=== PATIENT | female | born 1955 | race Caucasian/White ===

== ENCOUNTER → 2016-05-10 | Outpatient (CLI) | payer MEDICARE, OTHER ==
[~2016-05-10] MED LIST: BENI20TA25 PO; LEVO88TA21 PO
[2016-05-10 12:12] LABS: AUTOMATED NEUTROPHIL # 3.5 TH/MM3 (1.8-7.7); BASOPHIL % 0.7 % (0.0-2.0); EOSINOPHIL # 0.3 TH/MM3 (0-0.4); EOSINOPHIL % 5.2 % (0.0-4.0); HEMATOCRIT 41.2 % (35.0-46.0); HEMO FLAGS DIFF FINAL; LYMPH % 33.8 % (9.0-44.0); LYMPHOCYTE # 2.3 TH/MM3 (1.0-4.8); MEAN CELL VOLUME 83.6 FL (80.0-100.0); MEAN CORPUSCULAR HEMOGLOBIN 27.7 PG (27.0-34.0); MEAN CORPUSCULAR HGB CONC 33.1 % (32.0-36.0); MONO % 8.1 % (0.0-8.0); NEUT % 52.2 % (16.0-70.0); PLATELET COUNT 183 TH/MM3 (150-450); RED BLOOD COUNT 4.92 MIL/MM3 (4.00-5.30); RED CELL DISTRIBUTION WIDTH 14.2 % (11.6-17.2); WHITE BLOOD COUNT 6.8 TH/MM3 (4.0-11.0)
[2016-05-10 12:47] LABS: ALKALINE PHOSPHATASE 98 U/L (45-117); ALT (GPT) 30 U/L (10-53); ANION GAP 7 MEQ/L (5-15); AST (GOT) 19 U/L (15-37); BICARBONATE 30.9 MEQ/L (21.0-32.0); BLOOD UREA NITROGEN 14 MG/DL (7-18); CHLORIDE 103 MEQ/L (98-107); FREE T3 4.47 PG/ML (2.18-3.98); FREE T4 1.15 NG/DL (0.76-1.46); GLOMERULAR FILTRATION RATE 105 ML/MIN (>89); GLUCOSE,FASTING 72 MG/DL (74-99); HDL CHOLESTEROL 35.5 MG/DL (40.0-60.0); LDL CHOLESTEROL 88 MG/DL (0-99); POTASSIUM 3.6 MEQ/L (3.5-5.1); SODIUM (NA) 141 MEQ/L (136-145); TOTAL BILIRUBIN ADULT 0.4 MG/DL (0.2-1.0)
== END ==
LOC: ELAB 08:16
PROVIDERS: ATTEND Family Medicine
DX: I10 Essential (primary) hypertension (principal); E78.2 Mixed hyperlipidemia; E03.8 Other specified hypothyroidism; E55.9 Vitamin D deficiency, unspecified; Z79.899 Other long term (current) drug therapy
CPT/HCPCS: 36415; 80053; 80061; 82306; 84439; 84443; 84481; 85025

== ENCOUNTER → 2016-08-08 | Outpatient (CLI) | payer MEDICARE, OTHER ==
[2016-08-08 09:14] LABS: FREE T3 5.05 PG/ML (2.18-3.98); FREE T4 1.18 NG/DL (0.76-1.46)
== END ==
LOC: ELAB 07:17
PROVIDERS: ATTEND Family Medicine
DX: E03.8 Other specified hypothyroidism (principal)
CPT/HCPCS: 36415; 84439; 84443; 84481

== ENCOUNTER → 2016-09-06 | Outpatient (CLI) | payer MEDICARE, OTHER ==
[2016-09-06 10:03] LABS: FREE T3 3.51 PG/ML (2.18-3.98); FREE T4 1.13 NG/DL (0.76-1.46)
== END ==
LOC: ELAB 07:03
PROVIDERS: ATTEND Family Medicine
DX: E03.8 Other specified hypothyroidism (principal); Z79.899 Other long term (current) drug therapy
CPT/HCPCS: 36415; 84439; 84443; 84481

== ENCOUNTER → 2016-11-29 | Outpatient (CLI) | payer MEDICARE, OTHER ==
[2016-11-29 09:08] LABS: AUTOMATED NEUTROPHIL # 4.1 TH/MM3 (1.8-7.7); BASOPHIL # 0.1 TH/MM3 (0-0.2); BASOPHIL % 0.8 % (0.0-2.0); EOSINOPHIL # 0.3 TH/MM3 (0-0.4); EOSINOPHIL % 3.6 % (0.0-4.0); HEMATOCRIT 42.5 % (35.0-46.0); HEMO FLAGS DIFF FINAL; LYMPH % 30.3 % (9.0-44.0); LYMPHOCYTE # 2.2 TH/MM3 (1.0-4.8); MEAN CELL VOLUME 84.9 FL (80.0-100.0); MEAN CORPUSCULAR HEMOGLOBIN 29.1 PG (27.0-34.0); MEAN CORPUSCULAR HGB CONC 34.3 % (32.0-36.0); MONO % 8.7 % (0.0-8.0); NEUT % 56.6 % (16.0-70.0); PLATELET COUNT 172 TH/MM3 (150-450); RED CELL DISTRIBUTION WIDTH 14.8 % (11.6-17.2); WHITE BLOOD COUNT 7.2 TH/MM3 (4.0-11.0)
[2016-11-29 10:16] LABS: ANION GAP 8 MEQ/L (5-15); AST (GOT) 18 U/L (15-37); BICARBONATE 27.7 MEQ/L (21.0-32.0); BLOOD UREA NITROGEN 14 MG/DL (7-18); CHLORIDE 105 MEQ/L (98-107); GLOMERULAR FILTRATION RATE 112 ML/MIN (>89); GLUCOSE,FASTING 98 MG/DL (74-99); POTASSIUM 3.8 MEQ/L (3.5-5.1); SODIUM (NA) 141 MEQ/L (136-145)
[2016-11-29 10:26] LABS: ALKALINE PHOSPHATASE 86 U/L (45-117); ALT (GPT) 23 U/L (10-53); FREE T3 4.08 PG/ML (2.18-3.98); FREE T4 1.08 NG/DL (0.76-1.46); HDL CHOLESTEROL 40.9 MG/DL (40.0-60.0); LDL CHOLESTEROL 104 MG/DL (0-99); TOTAL BILIRUBIN ADULT 0.5 MG/DL (0.2-1.0)
== END ==
LOC: ELAB 07:05
PROVIDERS: ATTEND Family Medicine
DX: I10 Essential (primary) hypertension (principal); E55.9 Vitamin D deficiency, unspecified; E78.2 Mixed hyperlipidemia; E03.8 Other specified hypothyroidism
CPT/HCPCS: 36415; 80053; 80061; 82306; 84439; 84443; 84481; 85025

== ENCOUNTER → 2016-11-30 | Outpatient (CLI) | payer MEDICARE, OTHER ==
[2016-11-30 12:45] LABS: HEMOGLOBIN A1b 1.7 %; HEMOGLOBIN Ao 85.1 %; HEMOGLOBIN LA1C 2.1 %; HEMOGLOBIN P3 3.9 %
== END ==
LOC: ELAB 07:02
PROVIDERS: ATTEND Family Medicine
DX: E78.2 Mixed hyperlipidemia (principal); I10 Essential (primary) hypertension; E03.8 Other specified hypothyroidism; E55.9 Vitamin D deficiency, unspecified; E10.8 Type 1 diabetes mellitus with unspecified complications; Z79.899 Other long term (current) drug therapy
CPT/HCPCS: 36415; 83036

== ENCOUNTER → 2017-01-19 | Outpatient (CLI) | payer MEDICARE, OTHER ==
[2017-01-19 09:35] LABS: FREE T3 3.46 PG/ML (2.18-3.98); FREE T4 0.78 NG/DL (0.76-1.46)
== END ==
LOC: ELAB 07:56
PROVIDERS: ATTEND Family Medicine
DX: E03.8 Other specified hypothyroidism (principal); Z79.899 Other long term (current) drug therapy
CPT/HCPCS: 36415; 84439; 84443; 84481

== ENCOUNTER → 2017-03-02 | Outpatient (CLI) | payer MEDICARE, OTHER ==
[2017-03-02 10:46] LABS: FREE T3 3.19 PG/ML (2.18-3.98); FREE T4 0.74 NG/DL (0.76-1.46)
== END ==
LOC: ELAB 07:08
PROVIDERS: ATTEND Family Medicine
DX: E03.9 Hypothyroidism, unspecified (principal)
CPT/HCPCS: 36415; 84439; 84443; 84481

== ENCOUNTER → 2017-04-27 | Outpatient (CLI) | payer MEDICARE, OTHER ==
[2017-04-27 09:01] LABS: AUTOMATED NEUTROPHIL # 3.6 TH/MM3 (1.8-7.7); BASOPHIL # 0.1 TH/MM3 (0-0.2); BASOPHIL % 0.8 % (0.0-2.0); EOSINOPHIL # 0.3 TH/MM3 (0-0.4); EOSINOPHIL % 4.5 % (0.0-4.0); HEMATOCRIT 45.7 % (35.0-46.0); HEMOGLOBIN 15.7 GM/DL (11.6-15.3); LYMPHOCYTE # 2.3 TH/MM3 (1.0-4.8); MEAN CELL VOLUME 86.2 FL (80.0-100.0); MEAN CORPUSCULAR HEMOGLOBIN 29.6 PG (27.0-34.0); MEAN CORPUSCULAR HGB CONC 34.3 % (32.0-36.0); MEAN PLATELET VOLUME 10.6 FL (7.0-11.0); MONO % 9.7 % (0.0-8.0); MONOCYTE # 0.7 TH/MM3 (0-0.9); PLATELET COUNT 193 TH/MM3 (150-450); RED BLOOD COUNT 5.31 MIL/MM3 (4.00-5.30); RED CELL DISTRIBUTION WIDTH 14.6 % (11.6-17.2); WHITE BLOOD COUNT 6.9 TH/MM3 (4.0-11.0)
[2017-04-27 10:44] LABS: ALBUMIN 3.3 GM/DL (3.4-5.0); AST (GOT) 24 U/L (15-37); BICARBONATE 29.1 MEQ/L (21.0-32.0); BLOOD UREA NITROGEN 19 MG/DL (7-18); CHLORIDE 103 MEQ/L (98-107); CREATININE 0.67 MG/DL (0.50-1.00); GLOMERULAR FILTRATION RATE 89 ML/MIN (>89); GLUCOSE,FASTING 85 MG/DL (74-99); SODIUM (NA) 139 MEQ/L (136-145)
[2017-04-27 10:45] LABS: ALT (GPT) 27 U/L (10-53); CHOLESTEROL 232 MG/DL (120-200)
[2017-04-27 10:54] LABS: ALKALINE PHOSPHATASE 105 U/L (45-117); CHOLESTEROL/ HDL RATIO 4.76 RATIO; FREE T3 3.23 PG/ML (2.18-3.98); FREE T4 0.66 NG/DL (0.76-1.46); HDL CHOLESTEROL 48.7 MG/DL (40.0-60.0); LDL CHOLESTEROL 134 MG/DL (0-99); TOTAL BILIRUBIN ADULT 0.5 MG/DL (0.2-1.0); TOTAL PROTEIN 7.4 GM/DL (6.4-8.2); TRIGLYCERIDES 247 MG/DL (42-150)
== END ==
LOC: ELAB 07:45
PROVIDERS: ATTEND Family Medicine
DX: I10 Essential (primary) hypertension (principal); E78.2 Mixed hyperlipidemia; E03.8 Other specified hypothyroidism; Z79.899 Other long term (current) drug therapy
CPT/HCPCS: 36415; 80053; 80061; 84439; 84443; 84481; 85025

== ENCOUNTER → 2017-07-28 | Outpatient (CLI) | payer MEDICARE, OTHER ==
[2017-07-28 11:06] LABS: AUTOMATED NEUTROPHIL # 3.4 TH/MM3 (1.8-7.7); BASOPHIL # 0.1 TH/MM3 (0-0.2); BASOPHIL % 0.8 % (0.0-2.0); EOSINOPHIL # 0.3 TH/MM3 (0-0.4); EOSINOPHIL % 4.4 % (0.0-4.0); HEMATOCRIT 44.6 % (35.0-46.0); HEMOGLOBIN 15.4 GM/DL (11.6-15.3); LYMPH % 35.9 % (9.0-44.0); LYMPHOCYTE # 2.5 TH/MM3 (1.0-4.8); MEAN CELL VOLUME 86.5 FL (80.0-100.0); MEAN CORPUSCULAR HEMOGLOBIN 29.8 PG (27.0-34.0); MEAN CORPUSCULAR HGB CONC 34.5 % (32.0-36.0); MEAN PLATELET VOLUME 10.3 FL (7.0-11.0); MONO % 9.1 % (0.0-8.0); MONOCYTE # 0.6 TH/MM3 (0-0.9); NEUT % 49.8 % (16.0-70.0); PLATELET COUNT 180 TH/MM3 (150-450); RED BLOOD COUNT 5.16 MIL/MM3 (4.00-5.30); RED CELL DISTRIBUTION WIDTH 14.2 % (11.6-17.2); WHITE BLOOD COUNT 6.8 TH/MM3 (4.0-11.0)
[2017-07-28 11:26] LABS: ALBUMIN 3.5 GM/DL (3.4-5.0); AST (GOT) 39 U/L (15-37); BICARBONATE 28.6 MEQ/L (21.0-32.0); BLOOD UREA NITROGEN 15 MG/DL (7-18); CHLORIDE 106 MEQ/L (98-107); CREATININE 0.63 MG/DL (0.50-1.00); GLOMERULAR FILTRATION RATE 95 ML/MIN (>89); GLUCOSE,FASTING 92 MG/DL (74-99); SODIUM (NA) 141 MEQ/L (136-145)
[2017-07-28 11:28] LABS: CHOLESTEROL 191 MG/DL (120-200); TRIGLYCERIDES 263 MG/DL (42-150)
[2017-07-28 11:37] LABS: ALKALINE PHOSPHATASE 109 U/L (45-117); ALT (GPT) 47 U/L (10-53); CHOLESTEROL/ HDL RATIO 5.21 RATIO; FREE T3 4.56 PG/ML (2.18-3.98); FREE T4 0.94 NG/DL (0.76-1.46); HDL CHOLESTEROL 36.6 MG/DL (40.0-60.0); LDL CHOLESTEROL 102 MG/DL (0-99); TOTAL BILIRUBIN ADULT 0.5 MG/DL (0.2-1.0); TOTAL PROTEIN 7.1 GM/DL (6.4-8.2)
== END ==
LOC: ELAB 07:06
PROVIDERS: ATTEND Family Medicine
DX: E78.2 Mixed hyperlipidemia (principal); R53.83 Other fatigue; Z79.899 Other long term (current) drug therapy
CPT/HCPCS: 36415; 80053; 80061; 83789; 84439; 84443; 84481; 84482; 85025